=== PATIENT | female | born 1990 ===

== ENCOUNTER 2017-12-21 06:52 | Inpatient (IN) | payer OTHER | END 2017-12-22 14:54 | disposition HB | DRG 581 | LOC: CIR.AMB 06:52 → O/R 14:45 → SURG-SUITE 14:45 → SURH 15:00 → SURG-SUITE 16:16 | PROVIDERS: Plastic Surgery; Surgery | PROC: 0HRV0JZ Replacement of Bilateral Breast with Synthetic Substitute, Open Approach (ICD-10-PCS; principal; 2017-12-21 07:00) | PROC: 07T50ZZ Resection of Right Axillary Lymphatic, Open Approach (ICD-10-PCS; 2017-12-21 07:00) | DX: C50.111 Malignant neoplasm of central portion of right female breast (principal); C50.911 Malignant neoplasm of unspecified site of right female breast; Z90.13 Acquired absence of bilateral breasts and nipples; Z85.3 Personal history of malignant neoplasm of breast | CPT/HCPCS: 19303; 38525; 38792; 78195; 19357; A9541 ==

== ENCOUNTER 2018-02-18 07:19 | Day surgery (SDC) | payer OTHER ==
[~2018-02-18] VITALS: Ht 157.5 cm; Wt 52.2 kg
[~2018-02-18 07:19] MED LIST: FOLIC ACID1 MG PO; MIRALAX17 GM PO; NEPHRONEX-SL T1 EACH PO; PRILOSEC10 MG PO; ZANTAC150 M3 PO; ZOLODEX PO
== END 2018-02-18 14:20 | disposition home or self-care (01) ==
LOC: CIR.AMB 07:19
DX: Z90.13 Acquired absence of bilateral breasts and nipples (principal)

== ENCOUNTER 2018-12-13 06:19 | Day surgery (SDC) | payer OTHER ==
[~2018-12-13 06:19] MED LIST changes: +PROZAC10 MG PO; +VITAMIN D400 UNI5 PO; +ZOLADEX3.6 MG; +[UNRECOGNIZED DRUG - OTHER] PO
== END 2018-12-13 13:00 | disposition home or self-care (01) ==
LOC: CIR.AMB 06:19
PROVIDERS: Plastic Surgery
PROC: 0HQWXZZ Repair Right Nipple, External Approach (ICD-10-PCS; 2018-12-13)
PROC: 0HQXXZZ Repair Left Nipple, External Approach (ICD-10-PCS; principal; 2018-12-13 14:45)
DX: Z90.13 Acquired absence of bilateral breasts and nipples (principal)

== ENCOUNTER 2023-01-25 10:25 | Outpatient (CLI) | payer OTHER | END 2023-01-25 11:48 | disposition home or self-care (01) | LOC: PRENATAL 10:25 | PROVIDERS: ATTEND Obstetrics & Gynecology Maternal & Fetal Medicine | DX: Z76.1 Encounter for health supervision and care of foundling (principal) ==

== ENCOUNTER 2024-10-16 11:06 | Outpatient (CLI) | payer OTHER | END 2024-10-16 12:14 | LOC: NST 11:06 | PROVIDERS: ATTEND Obstetrics & Gynecology Gynecology | DX: Z3A.37 37 weeks gestation of pregnancy (principal) ==

== ENCOUNTER 2024-10-16 14:00 | Inpatient (IN) | payer OTHER ==
[~2024-10-16] VITALS: Ht 157.5 cm; Wt 67.6 kg
[2024-10-27] VITALS (11 sets, daily range): BP systolic 92–117; BP diastolic 55–71; O2SAT 1
[2024-10-27] MEDS ORDERED: RINGERS SOLUTION,LACTATED 1,000 ML IV SCH (06:30)
[2024-10-27] MEDS ORDERED: PRENATAL CAPLE1 EAC1 PO (06:47)
[2024-10-27 07:22] LABS: HEMATOCRIT 36.9 % (36.0-45.00); MEAN CELL VOLUME 96.4 fL (80.00-100.00); MEAN CORPUSCULAR HGB CONC 35.8 g/dl (32.0-36.0); PLATELET COUNT 265 K/uL (150-450); RED BLOOD COUNT 3.83 M/uL (4.00-6.00); RED CELL DISTRIBUTION WIDTH 15.3 % (11.5-14.5)
[2024-10-27 07:30] LABS: HEMOGLOBIN 13.2 g/dL (12.0-15.00); MEAN CORPUSCULAR HEMOGLOBIN 34.4 pg (27.00-32.0)
[2024-10-27 07:35] LABS: INR < 0.93; PROTHROMBIN TIME 10.1 SECONDS (9.0-11.5)
[2024-10-27 08:00] LABS: ALBUMIN 3.3 gm/dL (3.4-5.0); BILIRUBIN TOTAL 0.42 mg/dL (0.3-1.2); CALCIUM 9.6 mg/dL (8.5-10.1); CREATININE SERUM 0.69 mg/dL (0.55-1.02); GFR 96.82; GLOBULINA 4.2 G/DL (2.4-3.5); POTASSIUM 4.11 mEq/L (3.5-5.1); TOTAL PROTEIN 7.5 gm/dL (6.4-8.2)
[2024-10-27] MEDS ORDERED: MORPHINE SULFATE 4 MG/ML CARTRIDGE IV PRN (08:45)
[2024-10-27] MEDS ORDERED: CHLORHEXIDINE GLUCONATE 120 ML BOTTLE TOP ONE ×2 (10:51→13:00)
[2024-10-27] MEDS ORDERED: OXYTOCIN 20 UNITS/1000ML RL PIGGYBAG IV ONE (10:51)
[2024-10-27] MEDS ORDERED: ERYTHROMYCIN BASE OPHT 1GM EACH TUBE OP ONE ×2 (10:51→13:30)
[2024-10-27] MEDS ORDERED: LIDOCAINE HCL 1% 10ML VIAL ONE (10:52)
[2024-10-27] MEDS ORDERED: OXYTOCIN 500 ML IV ONE (11:00)
[2024-10-27] MEDS ORDERED: CEFAZOLIN SODIUM 1,000 MG VIAL ONE (12:08)
[2024-10-27] MEDS ORDERED: IBUprofen 400 MG TABLET PO PRN (13:00)
[2024-10-27] MEDS ORDERED: OXYTOCIN 1,000 ML IV ONE (13:15)
[2024-10-27] MEDS ORDERED: LIDOCAINE HCL 1% 10ML VIAL PERCUT ONE (13:30)
[2024-10-27] MEDS ORDERED: CEFAZOLIN SODIUM 1,000 MG VIAL IV ONE (13:30)
[2024-10-27] MEDS ORDERED: SENNA/DOCUSATE SODIUM 1 TAB TABLET PO SCH (21:00)
[2024-10-28 00:23] LABS: HEMATOCRIT 34.5 % (36.0-45.00); HEMOGLOBIN 11.5 g/dL (12.0-15.00); MEAN CELL VOLUME 99.2 fL (80.00-100.00); MEAN CORPUSCULAR HEMOGLOBIN 33.1 pg (27.00-32.0); MEAN CORPUSCULAR HGB CONC 33.4 g/dl (32.0-36.0); PLATELET COUNT 247 K/uL (150-450); RED BLOOD COUNT 3.48 M/uL (4.00-6.00); RED CELL DISTRIBUTION WIDTH 15.1 % (11.5-14.5)
[2024-10-28 01:00] VITALS: BP 92/59
[2024-10-28 07:47] VITALS: BP 92/69
[2024-10-28] MEDS ORDERED: PNV,CALCIUM 72/IRON/FOLIC ACID 1 TAB TABLET PO SCH (09:00)
[2024-10-28 13:30] VITALS: BP 107/74
[2024-10-28 16:00] VITALS: BP 90/80
[2024-10-29 00:26] VITALS: BP 93/62
[2024-10-29 08:07] VITALS: BP 99/63
== END 2024-10-29 16:44 | disposition home or self-care (01) | DRG 807 ==
LOC: LDR 10-27 06:17 → OB/GYN 10-27 14:05
PROVIDERS: Obstetrics & Gynecology Gynecology; ADMIT Obstetrics & Gynecology Maternal & Fetal Medicine; ATTEND Obstetrics & Gynecology Maternal & Fetal Medicine
PROC: 10D17Z9 Manual Extraction of Products of Conception, Retained, Via Natural or Artificial Opening (ICD-10-PCS; principal; 2024-10-27)
PROC: 10E0XZZ Delivery of Products of Conception, External Approach (ICD-10-PCS; 2024-10-27)
PROC: 0KQM0ZZ Repair Perineum Muscle, Open Approach (ICD-10-PCS; 2024-10-27)
PROC: 0UQMXZZ Repair Vulva, External Approach (ICD-10-PCS; 2024-10-27)
PROC: 4A1HXCZ Monitoring of Products of Conception, Cardiac Rate, External Approach (ICD-10-PCS; 2024-10-27)
DX: O70.1 Second degree perineal laceration during delivery (principal); O73.0 Retained placenta without hemorrhage; O71.82 Other specified trauma to perineum and vulva; Z37.0 Single live birth; Z3A.38 38 weeks gestation of pregnancy